=== PATIENT | male | born 1990 | race Caucasian/White ===

== ENCOUNTER 2023-09-09 12:36 | Emergency (ER) | payer OTHER, SELFPAY ==
--- NOTE | 2023-09-09 12:39 | ED.EYEPROB ---
HPI - Eye Problem General Chief complaint: Eye Problems Stated complaint: EYE REDNESS/SWELLING Time Seen by Provider: 09/09/23 12:39 Source: patient Mode of arrival: ambulatory Limitations: no limitations History of Present Illness HPI Narrative: Patient is a 32-year-old male who presents with right eye redness and swelling for 9 days. Patient states he has had it before and normally goes down after 2-3 days have warm compresses. Patient states it started to but then came back. Denies any vision changes. Related Data Home Medications Medication Instructions Recorded Confirmed amlodipine 10 mg tablet 10 mg DIRECTED 09/09/23 09/09/23 losartan 25 mg tablet 25 mg DIRECTED 09/09/23 09/09/23 testosterone cypionate 200 mg/mL 200 mg DIRECTED 09/09/23 09/09/23 intramuscular oil Allergies Allergy/AdvReac Type Severity Reaction Status Date / Time No Known Allergies Allergy Verified 03/06/19 08:25 Review of Systems Review of Systems: All systems reviewed & are unremarkable except as noted in HPI and below Constitutional: Constitutional: Denies body ache(s), Denies fever(s), Denies headache(s), Denies malaise and Denies weakness Eyes: Eyes: Denies blurry vision, Denies eye discharge, Reports irritation, Denies itchy eyes, Denies loss of vision and Denies eye pain ENT: Denies otalgia, Denies headache(s), Denies nasal discharge, Denies sinus pain and Denies sore throat Cardiovascular: Cardiovascular: Denies chest pain, Denies irregular heart rhythm and Denies dyspnea Respiratory: Respiratory: Denies dyspnea Gastrointestinal: Gastrointestinal: Denies abdominal pain, Denies diarrhea, Denies nausea and Denies vomiting Musculoskeletal: Musculoskeletal: Denies back pain, Denies myalgias and Denies arthralgias Integumentary/Breasts: Skin/Breast: Denies pruritus and Denies rash Neurologic: Denies headache(s), Denies loss of vision and Denies weakness Psychiatric: Psychiatric: Reports no additional psychiatric complaints Allergic/Immunologic: Allergic/Immunologic: Reports itchy eyes PMFSH Past Medical History Medical History ADHD Social History Social History Smoking status: Never smoker Alcohol intake: never Substance use: never Living arrangements: with family Occupation/Education: occupation Gender identity (if verbalized by the patient): Male Comments At time of signature, agree with nursing past medical, surgical, social and family history. There is no relevant family history pertinent to the presenting complaint. Exam Const: General: cooperative, healthy appearing, comfortable, no acute distress and well nourished Nutritional Appearance: well nourished Orientation/consciousness: patient oriented x3 Limitations: no limitations HENMT: Head: normal to inspection, normocephalic and atraumatic Ears: external ears normal Face/Nose/Sinus: Normal external nose present, normal facial exam and face symmetric Face and sinus: normal facial exam and face symmetric Mouth: Yes lip normal Eyes: General: appearance normal, both eyes and all related structures Visual Denny: normal visual denny by confrontation Alignment and Position: alignment normal and position normal Periorbital: periorbital findings normal Eyelids: eyelid abnormality right upper eyelid erythema (at lid margin), lid margins crusty/scaly, swelling (at lid margin) and tenderness Conjunctivae: conjunctival abnormality right conjunctival injection diffuse Sclera: sclerae normal Pupils: Equal, round and reactive pupils present EOM: EOMs intact bilaterally Direct Ophthalmoscopy: no photophobia Other: No hyphema, no foreign body under the lids. No surrounding erythema or induration Neck: Neck: normal visual inspection, full ROM, no lymphadenopathy and no meningeal signs Chest: Chest palpation & inspection: normal
[2023-09-09 12:46] VITALS: BP 152/81; PULSE 72; RESP 15; TEMP 36.6; O2SAT 99
== END 2023-09-09 13:11 | disposition home or self-care (01) ==
PROVIDERS: Emergency Provider Nurse Practitioner Family; PCP Family Medicine
DX: H01.001 Unspecified blepharitis right upper eyelid (principal)
CPT/HCPCS: 99203; G0463

== ENCOUNTER 2024-10-01 11:09 | Emergency (ER) | payer OTHER, SELFPAY ==
--- OUTSIDE RECORDS SUMMARY | 2024-10-01 11:10 | XMS_ITS | Clinical Summary ---
Author Organization [facility] Address [address] [place] [address] Care Team Providers Care Child Caregiver Name Role Phone Unavailable Primary Care Provider Unavailabl e Medications albuterol HFA (PROVENTIL HFA;VENTOLIN HFA) 90 mcg/actuation inhaler Inhale 2 puffs every 4 (four) hours if needed. 2 Active amoxicillin (AMOXIL) 875 mg tablet Take 875 mg by mouth every 12 (twelve) hours. 2 Active benzonatate (TESSALON) 200 mg capsule Take 200 mg by mouth 3 (three) times a day if needed. 2 Active amphetamine-dex troamphetamine (ADDERALL) 10 mg tablet TAKE 2 TABLETS BY MOUTH EVERY MORNING AND TAKE 1 TABLET BY MOUTH DAILY IN THE AFTERNOON 2 Active lisinopriL (PRINIVIL,ZESTR IL) 10 mg tablet 2 Active lisinopriL (PRINIVIL,ZESTR IL) 10 mg tablet Take 20 mg by mouth 1 (one) time each day. 2 Active predniSONE (DELTASONE) 20 mg tablet Take 20 mg by mouth 1 (one) time each day. 2 Active testosterone cypionate (DEPO-TESTOTERO NE) 200 mg/mL injection ADMINISTER 1 ML IN THE MUSCLE 1 TIME A WEEK FOR 12 WEEKS 2 Active cholecalciferol (VITAMIN D-3) 1,250 mcg (50,000 unit) capsule Take 50,000 Units by mouth 1 (one) time per week. 2 Active BD Luer-Geetha Syringe 3 mL 25 gauge x 1 syringe USE WEEKLY WITH TESTOSTERONE INJECTION 2 Active buPROPion SR (WELLBUTRIN SR) 150 mg 12 hr tablet Take 300 mg by mouth every morning. 3 Active ergocalciferol (VITAMIN D-2) 1,250 mcg (50,000 unit) capsule 3 Active QUEtiapine (SEROquel) 25 mg tablet 3 Active Mydayis 12.5 mg capsule, ER triphasic 24 hr TAKE 1 CAPSULE BY MOUTH EVERY DAY IN THE MORNING 3 Active propranoloL (INDERAL) 60 mg tablet Take 60 mg by mouth 1 (one) time each day. 3 Active Active Problems No known active problems Social History Tobacco Use Types Packs/Day Years Used Date Smoking Tobacco: Never Smokeless Tobacco: Never Tobacco Cessation:Counseling Given: Not Answered Alcohol Use Standard Drinks/Week Comments Yes 2 (1 standard drink = 0.6 oz pur e alcohol) Sex and Gender Information Value Date Recorded Sex Assigned at Not on file Legal Sex Male 2:08 PM PDT Gender Identity Not on file Sexual Orientation Not on file Last Filed Vital Signs Vital Sign Reading Time Taken Comments Blood Pressure 152/101 07/10/2022 7:49 AM CDT Pulse 71 07/10/2022 7:49 AM CDT Temperature - - Respiratory Rate - - Oxygen Saturation - - Inhaled Oxygen Concentration - - Weight - - Height - - Body Mass Index - - Plan of Treatment Health Maintenance Due Date Last Done Comments Dental Oral Exam 05/26/2022 11/22/2021 Dental X-Ray: Bitewings 05/26/2022 11/22/2021 Periodontal Maintenance 10/10/2022 07/10/2022 Scaling and Root Planing 02/14/2024 022, 01/30/2022, 12/18/2021, Additional history exists Dental X-Ray: Full Mouth 11/26/2024 11/25/2021, 10/29 Dental X-Ray: Panoramic 11/26/2024 11/25/2021, 11/22 Procedures Procedure Name Priority Date/Time Associated Diagnosis Comments PERIO MAINTENANCE Routine 07/10/2022 9:3 0 AM CDT UL PERIODONTAL SCALING AND ROOT PLANING - FOUR OR MORE TEETH PER QUADRANT Routine 01/30/2022 10:00 AM CDT PANORAMIC RADIOGRAPHIC IMAGE Routine 11/22/2021 7:00 AM CDT INTRAORAL - COMPREHENSIVE SERIES OF RADIOGRAPHIC IMAGES Routine 11/22/2021 7:00 AM CDT COMPREHENSIVE ORAL EVALUATION - NEW OR ESTABLISHED PATIENT Routine 11/22/2021 7:00 AM CDT from Last 3 Months or Most Recently Relevant to Health Maintenance Insurance [employer] [facility] PPO
--- OUTSIDE RECORDS SUMMARY | 2024-10-01 11:10 | XMS_ITS | Encounter Summary ---
Author Organization [facility] Address [address] [place] [address] Care Team Providers Care Background Check Coordinator Name Role Phone Unavailable Primary Care Provider Unavailabl e Prior Encounters Date Type Department Care Team Description 07/28/2022 11:30 AM CDT Office Visit [facility] [address] [place] [address] Lexx Hinton, [facility] 07/10/2022 9:30 AM CDT Office Visit [facility] [address] [place] [address] Alyssa Jernigan, [facility] 07/10/2022 7:00 AM CDT Office Visit [facility] [address] [place] [address] Lexx Hinton, [facility] 07/07/2022 3:00 PM CDT Office Visit [facility] [address] [place] [address] Lexx Hinton, S 02/10/2022 1:00 PM PHYSICIAN EXTENDER Office Visit [facility] [address] [place] [address] Lexx Hinton, [facility] 01/30/2022 10:00 AM CDT Office Visit [facility] [address] [place] [address] Magda Duenas, [facility] 12/18/2021 10:00 AM CDT Office Visit [facility] [address] [place] [address] Lexx Hinton DDS 12/18/2021 11:00 AM CDT Office Visit [facility] [address] [place] [address] Magda Duenas, [facility] 11/22/2021 7:00 AM CDT Office Visit [facility] [address] [place] [address] Lexx Hinton, ASYA Last Filed Vital Signs Vital Sign Reading Time Taken Comments Blood Pressure 152/101 07/10/2022 7:49 AM CDT Pulse 71 07/10/2022 7:49 AM CDT Temperature - - Respiratory Rate - - Oxygen Saturation - - Inhaled Oxygen Concentration - - Weight - - Height - - Body Mass Index - - Plan of Treatment Not on file Procedures Procedure Name Priority Date/Time Associated Diagnosis Comments 3 CEMENT CROWN Routine 07/28/2022 11:30 AM CDT NC X-RAY Routine 07/28/2022 11:30 AM CDT ORAL HYGIENE INSTRUCTIONS Routine 2022 9:30 AM CDT TOPICAL APPLICATION OF FLUORIDE VARNISH Routine 07/10/2022 9:30 AM CDT PERIO MAINTENANCE Routine 07/10/2022 9:3 0 AM CDT 3 CORE BUILDUP, INCLUDING ANY PINS WHEN REQUIRED Routine 07/10/2022 7:00 AM CDT 3 ZIRCONIA LAB MADE CROWN POST Routine 07/10/2022 7:00 AM CDT ADDITIONAL X-RAY Routine 07/07/2022 3:00 PM CDT LIMITED ORAL EVALUATION - PROBLEM FOCUSED Routine 07/07/2022 3:00 PM CDT BITEWING - SINGLE RADIOGRAPHIC IMAGE Routine 07/07/2022 3:00 PM CDT SINGLE X-RAY Routine 07/07/2022 3:00 PM CDT 2 CEMENT CROWN Routine 02/10/2022 1:00 PM PHYSICIAN EXTENDER NC X-RAY Routine 02/10/2022 1:00 PM PHYSICIAN EXTENDER TOPICAL APPLICATION OF FLUORIDE VARNISH Routine 01/30/2022 10:00 AM CDT LL ОЛЕГ DECON/QD Routine 01/30/2022 10:00 AM CDT UL ОЛЕГ DECON/QD Routine 01/30/2022 10:00 AM CDT LL ANTIBACT IRR/QUAD Routine 01/30/2022 10:00 AM CDT UL ANTIBACT IRR/QUAD Routine 01/30/2022 10:00 AM CDT LL PERIODONTAL SCALING AND ROOT PLANING - FOUR OR MORE TEETH PER QUADRANT Routine 01/30/2022 10:00 AM CDT UL PERIODONTAL SCALING AND ROOT PLANING - FOUR OR MORE TEETH PER QUADRANT Routine 01/30/2022 10:00 AM CDT CHLORHEXIDINE Routine 12/18/2021 11:00 AM CDT UR ОЛЕГ DECON/QD Routine 12/18/2021 11:00 AM CDT UR PERIODONTAL SCALING AND ROOT PLANING - FOUR OR MORE TEETH PER QUADRANT Routine 12/18/2021 11:00 AM CDT ORAL HYGIENE INSTRUCTIONS Routine 2021 11:00 AM CDT LR ANTIBACT IRR/QUAD Routine 12/18/2021 11:00 AM CDT LR ОЛЕГ DECON/QD Routine 12/18/2021 11:00 AM CDT UR ANTIBACT IRR/QUAD Routine 12/18/2021 11:00 AM CDT LR PERIODONTAL SCALING AND ROOT PLANING - FOUR OR MORE TEETH PER QUADRANT Routine 12/18/2021 11:00 AM CDT 2 CORE BUILDUP, INCLUDING ANY PINS WHEN REQUIRED Routine 12/18/2021 10:00 AM CDT 2 CERECFIRED CROWNPOST Routine 10:00 AM CDT INTRAORAL PHOTO Routine 11/22/2021 7:00 AM CDT INTRAORAL PHOTO Routine 11/22/2021 7:00 AM CDT INTRAORAL PHOTO Routine 11/22/2021 7:00 AM CDT INTRAORAL PHOTO Routine 11/22/2021 7:00 AM CDT PANORAMIC RADIOGRAPHIC IMAGE Routine 11/22/2021 7:00 AM CDT INTRAORAL - COMPREHENSIVE SERIES OF RADIOGRAPHIC IMAGES Routine 11/22/2021 7:00 AM CDT COMPREHENSIVE ORAL EVALUATION - NEW OR ESTABLISHED PATIENT Routine 11/22/2021 7:00 AM CDT 12 MOD COMPOSITE FILLING Routine 022 12:00 AM CDT 20 CEREC CROWN Routine 11/22/2021 12:00 AM CDT 2 M COMPOSITE FILLING Routine 11/22/2021 12:00 AM CDT 3 D COMPOSITE FILLING Routine 11/22/2021 12:00 AM CDT 3 M COMPOSITE FILLING Routine 11/22/2021 12:00 AM CDT 4 DO COMPOSITE FILLING Routine 12:00 AM CDT 28 DO COMPOSITE FILLING Routine 11/23/19 12:00 AM CDT 29 DO COMPOSITE FILLING Routine 11/23/19 12:00 AM CDT 30 MOD COMPOSITE FILLING Routine 12:00 AM CDT 31 MOD COMPOSITE FILLING Routine 12:00 AM CDT 13 MOD COMPOSITE FILLING Routine 12:00 AM CDT 14 MOD COMPOSITE FILLING Routine 12:00 AM CDT 15 MOD COMPOSITE FILLING Routine 12:00 AM CDT 18 PFM CROWN Routine 11/22/2021 12:00 AM CDT 3 O AMALGAM FILLING Routine 11/22/2021 1 2:00 AM CDT 2 O AMALGAM FILLING Routine 11/22/2021 1 2:00 AM CDT 19 ROOT CANAL Routine 11/22/2021 12:00 AM CDT 20 ROOT CANAL Routine 11/22/2021 12:00 AM CDT Visit Diagnoses Not on file Insurance #[id number] [place] [address] [employer] [facility] PPO
--- OUTSIDE RECORDS SUMMARY | 2024-10-01 11:10 | XMS_ITS | Clinical Summary ---
Author Organization [facility] Address [address] [place] [address] Care Team Providers Care Director Of Brand Marketing Name Role Phone Unavailable Primary Care Provider Unavailabl e Source Comments [facility],non-owned Affiliates and Associated Physician Practices is amultiple site organization consisting of ambulatory clinics and hospital sitesin [place], [place], [place] and [place]. This disclosure is being madepursuant to the Care Everywhere program and may not contain all information available regarding this patient. Last updated 17.[facility] Allergies No known active allergies Medications * Be aware that medications may not be up to date on this document. Alwaysverify current medications with the patient. ibuprofen (MOTRIN) 600 MG tablet Take 1 tablet by mouth every 8 hours as needed for Pain (take with food) 20 tablet 01/26/2019 Active Active Problems No known active problems Social History Tobacco Use Types Packs/Day Years Used Date Smoking Tobacco: Never Alcohol Use Standard Drinks/Week Comments Not Currently 0 (1 standard drink = 0.6 oz pur e alcohol) AUDIT-C Answer Date Recorded Frequency of Alcohol Consumption Never 01/26/2019 Average Number of Drinks Not on file 019 Frequency of Binge Drinking Not on file 12/30 Comments Unknown Sex and Gender Information Value Date Recorded Sex Assigned at Not on file Legal Sex Female 3:10 PM CDT Gender Identity Not on file Sexual Orientation Not on file Last Filed Vital Signs Vital Sign Reading Time Taken Comments Blood Pressure 155/91 01/26/2019 6:25 PM CDT Pulse 84 01/26/2019 6:26 PM CDT Temperature 36.7 C (98.1 F) 01/26/2019 2:39 PM CDT Respiratory Rate 16 01/26/2019 6:26 PM CDT Oxygen Saturation 99% 01/26/2019 6:26 PM CDT Inhaled Oxygen Concentration - - Weight 88.5 kg (195 lb) 01/26/2019 2:39 PM CDT Height 170.2 cm (5' 7) 01/26/2019 2:39 PM CDT Body Mass Index 30.54 01/26/2019 2:39 PM CDT Plan of Treatment Health Maintenance Due Date Last Done Comments HIV SCREENING 2005 HEPATITIS C SCREENING 11/05/2008 DTAP/TDAP/TD VACCINES (1 - Tdap) 2009 HEPATITIS B VACCINE (1 of 3 - 19+ 3-dose series) 2009 COVID-19 VACCINE (1 - 2023-2 5 season) 2023 DEPRESSION SCREENING 03/30/2024 INFLUENZA VACCINE (#1) 2024 ZOSTER VACCINE (1 of 2) 2040 HIB VACCINE Aged Out No longer eligi ble based on patient's age to complete this topic HPV VACCINE Aged Out No longer eligi ble based on patient's age to complete this topic MENINGOCOCCAL (Group B) VACC INE SHARED DECISION-MAKING Aged Out No longer eligibl e based on patient's age to complete this topic MENINGOCOCCAL GROUPS A/C/Y/W VACCINE Aged Out No longer eligible b ased on patient's age to complete this topic PNEUMOCOCCAL VACCINE Aged Out No long er eligible based on patient's age to complete this topic Insurance [facility]
--- OUTSIDE RECORDS SUMMARY | 2024-10-01 11:10 | XMS_ITS | Patient Health Record ---
Author Organization [facility] Address [address] [place] [address] Care Team Providers Care Stenographer Print Shop Name Role Phone Manjinder Mooney Primary Care Provider Stevo Lombardi Unavailable [phone] Allergies No Known Allergies Reason For Referral No Information Medications Medication SIG (Take, Route, Frequency, Duration) Notes Start Date End Date Status Losartan Potassium 25 MG TAKE 1 TABLET B Y MOUTH DAILY Oral; Duration: 30 Days Active Modafinil 200 MG 1 tablet in the morn ing Orally Once a day; Duration: 90 days 09/28/2024 Active Propranolol HCl 60 MG Oral; Duration: 90 Days Active Eszopiclone 2 MG 1 tablet immediately before bedtime Orally Once a day. Do NOT take with alcohol or opioids.; Duration: 30 days As needed for insomnia 05/31/2024 Not-Takin g Testosterone Cypionate 200 MG/ML Intramuscular; Duration: 84 Days Active Social History Tobacco Use: Social History Observation Description Date Details (start date - stop date) Never Smoker NA - NA Sex Assigned At : Social History Observation Description Sex Assigned At Male Tobacco Control (Standard) Question Answer Notes Tobacco use: Nonsmoker Problems Problem Type SNOMED Code ICD Code Onset Dates Problem Status W/U Status Risk Notes Problem Attention deficit hyperactivity disorder, predominantly inattentive type (84882889) Attention-deficit hyperactivity disorder, predominantly inattentive type (F90.0) Active confirmed Problem Overweight (213069466) Over weight (E66.3) Active confirmed Problem 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 Vital Signs Heart Rate 67 /min 09/28/2024 Blood pressure diastolic 86 mm Hg 09/28/2024 Oximetry 97 % 09/28/2024 Height 67 in 09/28/2024 Blood pressure systolic 140 mm Hg 09/28/2024 Weight 206 lb 8 oz lbs 09/28/2024 BMI 32.34 kg/m2 09/28/2024 Encounters Encounter Location Date Provider Diagnosis [address] [place] [address] 11/12/2023 Stevo Lombardi Attention-deficit hyperactivity disorder, predominantly inattentive type F90.0 and Shift work sleep disorder G47.[address] [place] [address] 03/09/2024 Stevo Lombadri Attention-deficit hyperactivity disorder, predominantly inattentive type F90.0 and Shift work sleep disorder G47.[address] [place] [address] 05/31/2024 Stevo Lombardi Shift work sleep disorder G47.[address] [place] [address] 09/28/2024 Stevo Lombardi Shift work sleep disorder G47.26 and Over weight E66.3 [facility] [address] [address] 12/02/2023 Stevo Lombardi Shift work sleep disorder G47.[address] [address] 03/08/2024 Stevo Lombardi [address] [place] [address] 03/09/2024 Stevo Lombardi Shift work sleep disorder G47.26 [facility] [address] [address] 05/24/2024 Stevo Lombardi Assessments Encounter Date Diagnosis (ICD Code) Assessment Notes Treatment Notes Treatment Clinical Notes Section Notes 09/28/2024 Shift work sleep disorder (ICD-10 - G47.26) 05/31/2024 Shift work sleep disorder (ICD-10 - G47.26) 12/02/2023 Shift work sleep disorder (ICD-10 - G47.26) 11/12/2023 Attention-deficit hyperactivity disorder, predominantly inattentive type (ICD-10 - F90.0) 11/12/2023 Shift work sleep disorder (ICD-10 - G47.26) 03/09/2024 Shift work sleep disorder (ICD-10 - G47.26) 03/09/2024 Attention-deficit hyperactivity disorder, predominantly inattentive type (ICD-10 - F90.0) 03/09/2024 Shift work sleep disorder (ICD-10 - G47.26) 09/28/2024 Over weight (ICD-10 - E66.3) [place]12[place]2023 [place]. Discussed sleep hygiene and caffeine intake with encouragement to limit electronic devices an hour before bed and to limit caffeine after 3:00pm. Exercise benefits for mood and health discussed. Psychoeducation regarding psychiatric illness provided. Client was educated about risks and benefits of medication, alternatives to medication, off label uses of medication, suicidal ideation with SSRIs, self-administration and compliance with medication along with how to safely store medication. Verbal informed consent obtained. Client agrees to return sooner if symptoms worsen or if suicidal or homicidal ideations occur. Client has the phone number to the 24-hour crisis line at [facility]. Questions addressed. Client verbalized understanding of all information and is agreeable to treatment plan. 03/09/2024 [place]. Discussed sleep hygiene and caffeine intake with encouragement to limit electronic devices an hour before bed and to limit caffeine after 3:00pm. Exercise benefits for mood and health discussed. Psychoeducation regarding psychiatric illness provided. Client was educated about risks and benefits of medication, alternatives to medication, off label uses of medication, suicidal ideation with SSRIs, self-administration and compliance with medication along with how to safely store medication. Verbal informed consent obtained. Client agrees to return sooner if symptoms worsen or if suicidal or homicidal ideations occur. Client has the phone number to the 24-hour crisis line at [facility]. Questions addressed. Client verbalized understanding of all information and is agreeable to treatment plan. 05/31/2024 [place]. Discussed sleep hygiene and caffeine intake with encouragement to limit electronic devices an hour before bed and to limit caffeine after 3:00pm. Exercise benefits for mood and health discussed. Psychoeducation regarding psychiatric illness provided. Client was educated about risks and benefits of medication, alternatives to medication, off label uses of medication, suicidal ideation with SSRIs, self-administration and compliance with medication along with how to safely store medication. Verbal informed consent obtained. Client agrees to return sooner if symptoms worsen or if suicidal or homicidal ideations occur. Client has the phone number to the 24-hour crisis line at [facility]. Questions addressed. Client verbalized understanding of all information and is agreeable to treatment plan. 09/28/2024 Other Discussed sleep hygiene and caffeine intake with encouragement to limit electronic devices an hour before bed and to limit caffeine after 3:00pm. Exercise benefits for mood and health discussed. Psychoeducation regarding psychiatric illness provided. Client was educated about risks and benefits of medication, alternatives to medication, off label uses of medication, suicidal ideation with SSRIs, self-administration and compliance with medication along with how to safely store medication. Verbal informed consent obtained. Client agrees to return sooner if symptoms worsen or if suicidal or homicidal ideations occur. Client has the phone number to the 24-hour crisis line at [facility]. Questions addressed. Client verbalized understanding of all information and is agreeable to treatment plan. Plan Of Treatment No Information Insurance Providers Payer Name Payer Address Payer Phone Subscriber Number Group Number Insured Name Patient Relationship to Insured Coverage Start Date Coverage End Date [employer] [address] [place] [id number] Mika Ashraf Self - patient is the insured 2020 Medical (General) History Surgical History Surgery Date(Month/Year)
--- OUTSIDE RECORDS SUMMARY | 2024-10-01 11:14 | XMS_ITS | Referral Summary ---
Author Organization [facility] Address [address] [place] [address] Care Team Providers Care Water Control Supervisor Name Role Phone Manjinder Briones MD Primary Care Provider [phone] Allergies No known active allergies Medications testosterone cypionate (TESTONE CIK) 200 mg/mL kit inject 0.25 milliliter by intramuscular route every 4 weeks 0 kit 0 6 Active dextroamphetam ine-amphetamin e XR (ADDERALL XR) 30 mg 24 hr capsule Take 30 mg by mouth every morning. Active Active Problems No known active problems Immunizations Immunization Administration Dates Next Due DTaP 05/16/1992,02/13/1992,05/28/1991 ,03/19/1991 Hep B Vaccine 10/05/2000,05/26/2000,04/16/2000 Hib (HbOC) 05/16/1992,05/28/1991,03/19/1991 ,01/08/1991 IPV 02/13/1992,05/28/1991,03/19/1991 ,01/08/1991 MMR 08/28/1995,02/13/1992 Tdap 03/30/2008,10/24/2004 Social History Tobacco Use Types Packs/Day Years Used Date Smoking Tobacco: Never Smokeless Tobacco: Never Tobacco Cessation:Counseling Given: Yes Alcohol Use Standard Drinks/Week Comments No 0 (1 standard drink = 0.6 oz pur e alcohol) Sex and Gender Information Value Date Recorded Sex Assigned at Not on file Legal 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 Gender Identity Not on file Sexual Orientation Not on file Last Filed Vital Signs Vital Sign Reading Time Taken Comments Blood Pressure 128/66 03/12/2019 10:30 AM EDGER AUTOMATIC Pulse 91 03/12/2019 10:30 AM EDGER AUTOMATIC Temperature 36.8 C (98.3 F) 03/12/2019 10:30 AM EDGER AUTOMATIC Respiratory Rate 16 03/12/2019 10:30 AM EDGER AUTOMATIC Oxygen Saturation 97% 03/12/2019 10:30 AM EDGER AUTOMATIC Inhaled Oxygen Concentration - - Weight 89.5 kg (197 lb 6.4 oz) 03/12/2019 10:30 AM EDGER AUTOMATIC Height 170.2 cm (5' 7) 03/12/2019 10:30 AM EDGER AUTOMATIC Body Mass Index 30.92 03/12/2019 10:30 AM EDGER AUTOMATIC Plan of Treatment Not on file Insurance Care Teams Water Control Supervisor Relationship Specialty Start Date End Date Manjinder Briones MD [facility] [place] [address] PCP - General 08/01/17
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
[2024-10-01 11:20] VITALS: BP 145/81; PULSE 72; RESP 18; TEMP 36.8; O2SAT 98
--- NOTE | 2024-10-01 11:25 | ED.URI ---
HPI - URI/Sore Throat General Chief Complaint: Upper Respiratory Infection Stated Complaint: Sore Throat patient presents to the [facility] with complaints of sore throat with nasal congestion and runny nose began about 2 days ago. Patient reports using ibuprofen with some relief of symptoms but today was getting less relief with the ibuprofen. No other medications attempted for symptoms. No known sick contacts. Denies fever, chills, body aches, headache, dizziness, nausea, vomiting, diarrhea, or cough. Related Data Home Medications ?Medication ?Instructions ?Recorded ?Confirmed ?Last Taken ?Type losartan 25 mg tablet 25 mg DIRECTED 09/09/23 09/09/23 Unknown History testosterone cypionate 200 mg/mL 200 mg DIRECTED 09/09/23 09/09/23 Unknown History intramuscular oil propranolol 60 mg tablet mg 10/01/24 Unknown History Allergies Allergy/AdvReac Type Severity Reaction Status Date / Time No Known Allergies Allergy Verified 03/06/19 08:25 Review of Systems Constitutional: Constitutional: Reports as per HPI, Denies chills, Reports fatigue, Denies fever(s) and Denies weakness Eyes: Eyes: Reports no additional eye complaints ENT: Reports as per HPI, Denies dysphagia, Denies vertigo, Denies dizziness, Denies epistaxis, Denies nasal congestion and Reports sore throat Cardiovascular: Cardiovascular: Reports no additional cardiovascular complaints Respiratory: Respiratory: Reports as per HPI, Denies chest congestion and Denies cough Gastrointestinal: Gastrointestinal: Reports as per HPI, Denies diarrhea, Denies nausea and Denies vomiting Genitourinary: Genitourinary: Reports no additional male genitourinary complaints Musculoskeletal: Musculoskeletal: Reports no additional musculoskeletal complaints Integumentary/Breasts: Skin/Breast: Reports as per HPI, Denies erythema and Denies rash Neurologic: Reports system reviewed and no additional complaints, except as documented Psychiatric: Psychiatric: Reports no additional psychiatric complaints Endocrine: Endocrine: Reports no additional endocrine complaints Hematologic/Lymphatic: Hematologic/Lymphatic: Reports no additional hematologic/lymphatic complaints Allergic/Immunologic: Allergic/Immunologic: Reports no additional allergic/immunologic complaints [facility] Past Medical History Medical History ADHD Social History Social History Smoking status: Never smoker Alcohol intake: never Substance use: never Living arrangements: with family Occupation/Education: occupation Gender identity (if verbalized by the patient): Male Exam Const: General: healthy appearing and no acute distress Nutritional Appearance: well nourished Orientation/consciousness: patient oriented x3 Limitations: no limitations HENMT: Head: normal to inspection Ears: external ears normal and TM's normal bilaterally Face/Nose/Sinus: Normal external nose present and Normal nares present Face and sinus: normal facial exam and sinuses nontender Mouth: Yes Normal oral and palatal mucosa present, Yes lip normal and Yes moist mucous membranes Throat: posterior oropharynx abnormal ( Minimal edema with moderate erythema, no exudate.) Neck: Neck: no lymphadenopathy Resp: Effort & Inspection: normal respiratory effort Auscultation: clear to auscultation bilaterally Cardio: Rate: regular rate Rhythm: regular rhythm Skin: General skin exam: normal color Rashes: no rashes Wounds: no wounds Neuro: General: patient oriented x3 Speech: normal speech Gait exam (Neuro): Normal gait present Psych: Mental Status: mental status grossly normal Affect: normal affect Attitude: cooperative Course Course Level of Care: Express Care Visit Vital Signs Vital signs: Vital Signs Temperature 98.2 F 10/01/24 11:20 Pulse Rate 72 10/01/24 11:20 Respiratory Rate 18 10/01/24 11:20 Blood Pressure 145/81 H 10/01/24 11:20 Pulse Oximetry 98 10/01/24 11:20 Oxygen Delivery Room Air 10/01/24 11:20 Temperature 98.2 F 10/01/24 11:20 Pulse Rate 72 10/01/24 11:20 Respiratory Rate 18 10/01/24 11:20 Blood Pressure 145/81 H 10/01/24 11:20 Pulse Oximetry 98 10/01/24 11:20 Oxygen Delivery Room Air 10/01/24 11:20 MDM - URI/Sore Throat MDM Narrative Medical decision making narrative: Strep testing negative will send culture. Discharge instructions reviewed with patient, as well as provided in writing per nursing staff. The instructions also include specific and strict return/GO TO THE ER as well as f/u information. All questions have been answered, and the patient deny any further questions with discharge and discharge plan. Differential Diagnosis Differential diagnosis: Likely upper respiratory infection, otitis media, sinusitis, viral infection and pharyngitis Medical Records Attestation: I reviewed the patient's medical records. Lab Data Attestation: I reviewed the patient's lab results. Discharge Plan Discharge Clinical Impression: Pharyngitis Patient Disposition: Home Condition: Stable Instructions: Antibiotic Form, Pharyngitis (ED) Additional Instructions: Your rapid strep swab was negative today at [facility]. You will be notified in a few days if the culture comes back positive for strep, and appropriate antibiotics will be called in for him at that time. His symptoms are likely due to a viral illness, which is not treated with antibiotics. Viral symptoms can be present for up to 10-14 days. Take Tylenol or ibuprofen for fever or pain. Rest and stay hydrated. Follow up with your PCP in 10 days if symptoms are not improving, or sooner if symptoms are worsening. Patient Language: Turkmen Prescriptions: No Action propranolol 60 mg tablet losartan 25 mg tablet 25 mg DIRECTED testosterone cypionate 200 mg/mL oil 200 mg DIRECTED Follow-up/Referrals: Anali,Manjinder Santiago MD [Primary Care Provider] - Time of Disposition: 11:41
[2024-10-01 11:36] LABS: EDSTREPNEGPOS1 Negative (Negative)
== END 2024-10-01 11:43 | disposition home or self-care (01) ==
PROVIDERS: Emergency Provider Nurse Practitioner Family; PCP Family Medicine
DX: J02.9 Acute pharyngitis, unspecified (principal)
CPT/HCPCS: 87081; 87880; 99213; G0463